=== PATIENT | female | born 1935 | race Caucasian/White ===

== ENCOUNTER 2025-02-11 13:44 | Inpatient (IN) | payer MEDICARE ==
[~2025-02-11] VITALS: Ht 160 cm; Wt 64.9 kg
[2025-02-11] MEDS ORDERED: AMITRIPTYLINE10 MG PO (15:15)
[2025-02-11] MEDS ORDERED: ACETAMINOPHEN500 M4 PO (15:17)
[2025-02-11] MEDS ORDERED: BACITRACIN28.4 GM T (15:18)
[2025-02-11] MEDS ORDERED: TOPROL XL25 MG PO (15:19)
[2025-02-11] MEDS ORDERED: ASPIRIN CHEWABL81 MG PO (15:20)
[2025-02-11] MEDS ORDERED: PEPCID20 MG PO (15:21)
[2025-02-11] MEDS ORDERED: LISINOPRIL2.5 MG PO (15:22)
[2025-02-11] MEDS ORDERED: MULTI-VITAMIN1 EACH PO (15:24)
[2025-02-11] MEDS ORDERED: SYNTHROID137 MCG PO (15:26)
[2025-02-11] MEDS ORDERED: SENNA8.6 MG PO (15:27)
[2025-02-11] MEDS ORDERED: ELIQUIS5 M1 PO (15:28)
[2025-02-11] MEDS ORDERED: DULCOLAX STOOL100 M1 PO (15:30)
[2025-02-11] MEDS ORDERED: LIPITOR40 MG PO (15:34)
[2025-02-11] MEDS ORDERED: METFORMIN HYDR500 MG PO (15:40)
[2025-02-11] MEDS ORDERED: BISACODYL10 MG R (15:41)
[2025-02-11] MEDS ORDERED: ONDANSETRON HYDR4 MG PO (15:47)
[2025-02-11] MEDS ORDERED: GLUCOSE33 GM PO (15:50)
[2025-02-11] MEDS ORDERED: TRAMADOL HCL25 MG PO (15:52)
[2025-02-11] MEDS ORDERED: TUMS200 MG PO (15:54)
[2025-02-11 18:53] VITALS: BP 142/49
[2025-02-11] MEDS ORDERED: CALCIUM (TUMS) 500MG PO PRN (19:40)
[2025-02-11] MEDS ORDERED: Ondansetron Hydrochloride 4 MG TAB PO PRN (19:40)
[2025-02-11] MEDS ORDERED: BISACODYL 10 MG SUPP R PRN (19:40)
[2025-02-11 20:00] VITALS: BP 187/90
[2025-02-11] MEDS ORDERED: ATORVASTATIN CALCIUM 40 MG TABLET PO SCH (21:00)
[2025-02-11] MEDS ORDERED: APIXABAN 5 MG TAB PO SCH (21:00)
[2025-02-11] MEDS ORDERED: DOCUSATE SODIUM 100 MG CAP PO SCH (21:00)
[2025-02-11] MEDS ORDERED: METOPROLOL SUCCINATE XR 25 MG TAB PO SCH (21:00)
[2025-02-11] MEDS ORDERED: ACETAMINOPHEN 500 MG TAB PO SCH (22:00)
[2025-02-11] MEDS ORDERED: ACETAMINOPHEN 325 MG TAB PO PRN (22:15)
[2025-02-11] MEDS ORDERED: MG-AL HYDROXIDE/SIMETICONE 30 ML UDC PO PRN (22:15)
[2025-02-11] MEDS ORDERED: hydrOXYzine hydrochloride 50 MG/ML VIAL IM PRN (22:25)
[2025-02-11] MEDS ORDERED: LORazepam 1 MG TAB PO PRN (22:25)
[2025-02-11] MEDS ORDERED: Menthol/Zinc Oxide 4 GM THIN T PRN (22:25)
[2025-02-12 06:48] LABS: BASO # 0.0 10*3/uL (0.0-0.1); BASO % 0.7 % (0.0-1.0); EOS # 0.1 10*3/uL (0.0-0.4); EOS % 2.2 % (1.0-4.0); MEAN CELL VOLUME 100.6 fl (81.0-99.0); MEAN CORPUSCULAR HGB 30.6 pg (27.0-31.0); MEAN PLATELET VOLUME 9.8 fl (9.6-12.3); MONO # 0.5 10*3/uL (0.1-1.0); MONO % 8.8 % (3.0-9.0); NEUT # 3.4 10*3/uL (2.3-7.9); NEUT % 61.5 % (47.0-73.0); NUCLEATED RED BLOOD CELL 0.0 % (0.0-0.0); NUCLEATED RED BLOOD CELL 0.0 10*3/uL (0.0-0.0); PLATELET COUNT AUTOMATED 166 10*3/uL (130-400); RED CELL DISTRI WIDTH 14.6 % (0-14.5)
[2025-02-12 07:34] LABS: BUN 17.0 mg/dl (9-23); LDL CHOLESTEROL 51.0 mg/dL (9-159); SGPT/ALT 14.0 U/L (5-49)
[2025-02-12 08:00] VITALS: BP 150/78
[2025-02-12 08:54] LABS: VITAMIN D, 25-HYDROXY 47.8 ng/mL (30-100)
[2025-02-12] MEDS ORDERED: LISINOPRIL 2.5 MG TAB PO SCH (09:00)
[2025-02-12] MEDS ORDERED: ASPIRIN, CHEWABLE 81 MG TAB PO SCH (09:00)
[2025-02-12] MEDS ORDERED: FAMOTIDINE 20 MG TAB PO SCH (09:00)
[2025-02-12 20:00] VITALS: BP 126/88
[2025-02-12] MEDS ORDERED: Mirtazapine 15 MG TAB PO SCH (21:00)
[2025-02-12] MEDS ORDERED: Menthol/Zinc Oxide 4 GM THIN T SCH (21:00)
[2025-02-12] MEDS ORDERED: Memantine Hydrochloride 5 MG TAB PO SCH (21:00)
[2025-02-13 08:35] VITALS: BP 151/84
[2025-02-13 20:00] VITALS: BP 141/65
[2025-02-13] MEDS ORDERED: NYSTATIN 15 GM BOT T SCH (21:00)
[2025-02-13] MEDS ORDERED: Memantine Hydrochloride 5 MG TAB PO SCH (21:00)
[2025-02-14 08:00] VITALS: BP 150/85
[2025-02-14 20:00] VITALS: BP 111/60
[2025-02-15] MEDS ORDERED: DICLOFENAC SODIUM 100 GM TUBE T SCH (07:00)
[2025-02-15 08:43] VITALS: BP 99/68
[2025-02-15 20:56] VITALS: BP 110/65
[2025-02-15] MEDS ORDERED: Fosfomycin Tromethamine 3 GM PDS PO SCH (22:45)
[2025-02-16 08:16] VITALS: BP 146/63
[2025-02-16 20:00] VITALS: BP 122/58
[2025-02-17 07:55] LABS: BASO # 0.1 10*3/uL (0.0-0.1); BASO % 1.1 % (0.0-1.0); EOS # 0.1 10*3/uL (0.0-0.4); EOS % 2.1 % (1.0-4.0); MEAN CELL VOLUME 100.8 fl (81.0-99.0); MEAN CORPUSCULAR HGB 30.7 pg (27.0-31.0); MEAN PLATELET VOLUME 9.6 fl (9.6-12.3); MONO # 0.4 10*3/uL (0.1-1.0); MONO % 7.2 % (3.0-9.0); NEUT # 3.7 10*3/uL (2.3-7.9); NEUT % 65.1 % (47.0-73.0); NUCLEATED RED BLOOD CELL 0.0 % (0.0-0.0); NUCLEATED RED BLOOD CELL 0.0 10*3/uL (0.0-0.0); PLATELET COUNT AUTOMATED 190 10*3/uL (130-400); RED CELL DISTRI WIDTH 14.5 % (0-14.5)
[2025-02-17 08:00] VITALS: BP 130/75
[2025-02-17 08:26] LABS: BUN 26.0 mg/dl (9-23); SGPT/ALT 13.0 U/L (5-49)
[2025-02-17] MEDS ORDERED: LIDOCAINE 1 EA PATCH T SCH (09:00)
[2025-02-17 20:00] VITALS: BP 138/62
[2025-02-18 08:00] VITALS: BP 141/87
[2025-02-18] MEDS ORDERED: Rivastigmine Tartrate 4.6 MG/24 HR PATCH T SCH (09:55)
[2025-02-18 20:00] VITALS: BP 92/48
[2025-02-19 08:00] VITALS: BP 137/97
[2025-02-19] MEDS ORDERED: Rivastigmine Tartrate 4.6 MG/24 HR PATCH T SCH (09:00)
[2025-02-19 20:00] VITALS: BP 111/60
[2025-02-20 08:21] VITALS: BP 120/74
[2025-02-20 20:00] VITALS: BP 111/87
[2025-02-21 08:23] VITALS: BP 127/72
[2025-02-21] MEDS ORDERED: Rivastigmine Tartrate 9.5 MG/24 HR PATCH T SCH (09:00)
[2025-02-21] MEDS ORDERED: FLUCONAZOLE 150 MG TAB PO SCH (13:35)
[2025-02-21] MEDS ORDERED: ASPIRIN CHEWABL81 MG PO (16:21)
[2025-02-21] MEDS ORDERED: SYNTHROID137 MCG PO (16:21)
[2025-02-21] MEDS ORDERED: FLUONAZOLE150 M1 PO (16:21)
[2025-02-21] MEDS ORDERED: PEPCID20 MG PO (16:21)
[2025-02-21] MEDS ORDERED: TOPROL XL25 MG PO (16:21)
[2025-02-21] MEDS ORDERED: LIPITOR40 MG PO (16:21)
[2025-02-21] MEDS ORDERED: METFORMIN HYDR500 MG PO (16:21)
[2025-02-21] MEDS ORDERED: ELIQUIS5 M1 PO (16:21)
[2025-02-21 20:00] VITALS: BP 135/88
[2025-02-22 08:00] VITALS: BP 155/94
[2025-02-22] MEDS ORDERED: MIRTAZAPINE15 M2 PO (11:16)
[2025-02-22] MEDS ORDERED: RIVASTIGMINE1 EAC1 T (11:16)
[2025-02-22] MEDS ORDERED: MEMANTINE HCL10 MG PO (11:16)
== END 2025-02-22 13:14 | DRG 885 ==
LOC: 3N 13:44
PROVIDERS: Counselor Professional; ADMIT Psychiatry & Neurology Psychiatry; ATTEND Psychiatry & Neurology Psychiatry
PROC: GZHZZZZ Group Psychotherapy (ICD-10-PCS; principal; 2025-02-12)
PROC: GZ51ZZZ Individual Psychotherapy, Behavioral (ICD-10-PCS; 2025-02-12)
DX: F33.2 Major depressive disorder, recurrent severe without psychotic features (principal); N18.31 Chronic kidney disease, stage 3a; N30.01 Acute cystitis with hematuria; I48.21 Permanent atrial fibrillation; F41.9 Anxiety disorder, unspecified; E11.22 Type 2 diabetes mellitus with diabetic chronic kidney disease; K21.9 Gastro-esophageal reflux disease without esophagitis; E78.2 Mixed hyperlipidemia; E03.9 Hypothyroidism, unspecified; I12.9 Hypertensive chronic kidney disease with stage 1 through stage 4 chronic kidney disease, or unspecified chronic kidney disease; F63.81 Intermittent explosive disorder; G30.9 Alzheimer's disease, unspecified; F02.80 Dementia in other diseases classified elsewhere, unspecified severity, without behavioral disturbance, psychotic disturbance, mood disturbance, and anxiety; Z86.73 Personal history of transient ischemic attack (TIA), and cerebral infarction without residual deficits